=== PATIENT | female | born 1965 | race Caucasian/White ===

== ENCOUNTER 2016-08-20 06:44 | Day surgery (SDC) | payer BC, OTHER ==
[~2016-08-20] VITALS: Ht 157.5 cm; Wt 96.0 kg
[~2016-08-20 06:44] MED LIST: IBUPROFEN200 M1 PO; LASIX20 MG PO; METFORMIN HCL1000 MG PO; NYSTATIN15 GM TP; PRAVASTATIN SOD10 MG PO
[2016-08-20 07:05] VITALS: BP 135/72
[2016-08-20 07:12] LABS: POINT-OF-CARE METER ID UU14174212
[2016-08-20 09:24] LABS: POINT-OF-CARE METER ID UU13113675
[2016-08-20 09:55] VITALS: BP 149/79
[2016-08-20 10:55] VITALS: BP 151/83
[2016-08-20 11:10] VITALS: BP 151/83
== END 2016-08-20 11:20 | disposition home or self-care (01) ==
LOC: SDC 06:44
PROVIDERS: Obstetrics & Gynecology Gynecologic Oncology
PROC: 0UDB8ZX Extraction of Endometrium, Via Natural or Artificial Opening Endoscopic, Diagnostic (ICD-10-PCS; principal; 2016-08-20)
DX: N93.8 Other specified abnormal uterine and vaginal bleeding (principal); Z80.49 Family history of malignant neoplasm of other genital organs; E11.9 Type 2 diabetes mellitus without complications; I10 Essential (primary) hypertension; E78.2 Mixed hyperlipidemia; E66.9 Obesity, unspecified; Z68.38 Body mass index [BMI] 38.0-38.9, adult; E28.2 Polycystic ovarian syndrome; Z79.84 Long term (current) use of oral hypoglycemic drugs; Z88.0 Allergy status to penicillin; Z88.1 Allergy status to other antibiotic agents
CPT/HCPCS: 82948; 88305; J0330; J1580; J1885; J2405; J3010; J7050; S0030